=== PATIENT | female | born 1995 | race Caucasian/White ===

== ENCOUNTER 2021-02-03 19:50 | Emergency (ER) | payer MEDICAID ==
[~2021-02-03] VITALS: Ht 147.3 cm; Wt 61.2 kg
[~2021-02-03 19:50] MED LIST: [UNRECOGNIZED DRUG - OTHER]
[2021-02-03 20:08] VITALS: BP 154/81
--- NOTE | 2021-02-03 20:15 | NUR ---
PATIENT TO LOBBY VIA W/C
--- NOTE | 2021-02-03 21:01 | NUR ---
PT TAKEN TO RADIOLOGY
--- NOTE | 2021-02-03 22:31 | NUR ---
PT ASSISTED TO BED 04 VIA W/C.
[2021-02-03] MEDS ORDERED: ACETAMINOPHEN EXTRA STRENGTH 500 MG TAB PO ONE (22:45)
[2021-02-03] MEDS ORDERED: IBUP-2218 PO (22:47)
[2021-02-03 23:23] VITALS: BP 136/78
--- NOTE | 2021-02-03 23:26 | NUR ---
PATIENT DC HOME STABLE NOT COMPLAINING OF PAIN VITALS SIGNS IN NORMAL LIMITS ALL DC INSTRUCTION GAVE TO PATIENT AND EXPLAINED WE RECOMEND TO FOLLOW WITH PCP //Ahsan RN
== END 2021-02-03 23:26 | disposition home or self-care (01) ==
LOC: MED 19:50
DX: S83.91XA Sprain of unspecified site of right knee, initial encounter (principal); S83.004A Unspecified dislocation of right patella, initial encounter; E11.9 Type 2 diabetes mellitus without complications; Z79.899 Other long term (current) drug therapy; X50.1XXA Overexertion from prolonged static or awkward postures, initial encounter; Y93.01 Activity, walking, marching and hiking; Y92.89 Other specified places as the place of occurrence of the external cause; Y99.8 Other external cause status
CPT/HCPCS: 29505; 73562; 99283